=== PATIENT | male | born 1965 | race Caucasian/White ===

== ENCOUNTER 2017-02-16 20:32 | Emergency (ER) | payer MEDICARE, MEDICAID ==
[~2017-02-16 20:32] MED LIST: ADVAIR 250/501 DISK INH; ASPIRIN325 MG PO; BACTRIM DS TABL1 TAB PO; COUMADIN5 MG PO; HYDRALAZINE HCL25 MG PO; LASIX40 MG PO; LISINOPRIL5 MG PO; LOPRESSOR50 MG PO; METOPROLOL TART50 MG PO; NORCO 10/325 TA1 TA1 PO; NORVASC10 MG PO; PROAIR HFA8.5 GM INH; ROBAXIN500 MG PO; ULTRAM50 MG PO; ZESTRIL40 MG PO
[2017-02-16 21:09] LABS: BASOPHILS 0.2 % (0-2); EOSINOPHILS 2.9 % (0-7); HEMATOCRIT 40.4 % (42.0-54.0); HEMOGLOBIN 13.5 g/dL (13.5-17.5); IMMATURE GRANULOCYTES 0.2 % (0-5); LYMPHOCYTES 15.6 % (15-50); MCH 32.1 pg (26.0-34.0); MCHC 33.4 g/dL (31.0-37.0); MONOCYTES 7.2 % (2-11); NEUTROPHILS 73.9 % (40-80); PLATELET COUNT 162 10x3/uL (130-400); RBC 4.21 10x6/uL (4.20-6.10); RDW 13.3 % (11.5-14.5); WBC 5.3 10x3/uL (4.8-10.8)
[2017-02-16 21:34] LABS: ALBUMIN 3.3 g/dL (3.4-5.0); ALKALINE PHOSPHATASE 58 U/L (46-116); ALT (SGPT) 67 U/L (10-68); BILIRUBIN - TOTAL 0.26 mg/dL (0.2-1.3); CALC OSMOLALITY 277 mosm/kg (275-300); CALCIUM 8.8 mg/dL (8.5-10.1); CARBON DIOXIDE 25.8 mmol/L (21.0-32.0); CHLORIDE - SERUM 99 mmol/L (98-107); GLUCOSE 215 mg/dL (74-106); POTASSIUM - SERUM 4.4 mmol/L (3.5-5.1); PROTEIN - SERUM 7.3 g/dL (6.4-8.2); SODIUM 135 mmol/L (136-145); UREA NITROGEN 19 mg/dL (7-18); eGFR NON AFRICAN AMERICAN 84 mL/min (90-120)
[2017-02-16 21:44] LABS: CHOL - HDL RATIO 6.1 ratio (2.3-4.9); CHOLESTEROL, TOTAL 214 mg/dL (0-200); CKMB 2.9 U/L (0.0-3.6); CREATINE KINASE 214 UL (21-232); HDL CHOLESTEROL 35 mg/dL (32-96); LDL CHOLESTEROL 127 mg/dL (0-100); LDL-HDL RATIO 3.6 ratio (1.5-3.5); TRIGLYCERIDE 264 mg/dL (30-200); TROPONIN-I < 0.017 ng/mL (0.000-0.060)
== END 2017-02-17 00:20 | disposition home or self-care (01) ==
LOC: D.ER 20:32
PROVIDERS: Emergency Medicine
DX: R07.89 Other chest pain (principal); F17.200 Nicotine dependence, unspecified, uncomplicated

== ENCOUNTER → 2017-09-18 12:22 | Outpatient (CLI) | payer MEDICARE, MEDICAID ==
[2014-11-25 13:26] VITALS: BMI 59.2
== END | disposition home or self-care (01) ==
LOC: D.US 09-12 10:00
DX: I65.23 Occlusion and stenosis of bilateral carotid arteries (principal); M79.605 Pain in left leg

== ENCOUNTER → 2018-09-30 13:14 | Outpatient (CLI) | payer MEDICARE ==
[2014-11-25 13:26] VITALS: BMI 59.2
== END | disposition home or self-care (01) ==
LOC: D.US 13:14
PROVIDERS: ATTEND Internal Medicine Cardiovascular Disease
DX: I65.23 Occlusion and stenosis of bilateral carotid arteries (principal); I73.9 Peripheral vascular disease, unspecified

== ENCOUNTER → 2019-09-29 12:55 | Outpatient (CLI) | payer MEDICARE ==
[2014-11-25 13:26] VITALS: BMI 59.2
== END | disposition home or self-care (01) ==
LOC: D.US 09-23 14:00
PROVIDERS: ATTEND Internal Medicine Cardiovascular Disease
DX: I65.23 Occlusion and stenosis of bilateral carotid arteries (principal)

== ENCOUNTER 2019-11-10 23:06 | Inpatient (IN) | payer MEDICARE ==
[~2019-11-10] VITALS: Ht 198.1 cm; Wt 222.7 kg
[2019-11-10] MEDS ORDERED: K-TAB10 MEQ PO (23:14)
[2019-11-10] MEDS ORDERED: HYDRALAZINE HCL25 MG PO (23:14)
[2019-11-10] MEDS ORDERED: GABAPENTIN300 MG PO (23:14)
[2019-11-10] MEDS ORDERED: BACLOFEN20 M1 PO (23:16)
--- NOTE | 2019-11-10 23:20 | NUR ---
[facility] #[id number]
[2019-11-10 23:36] LABS: HEMATOCRIT 42.3 % (42.0-54.0); HEMOGLOBIN 13.9 g/dL (13.5-17.5); LYMPHOCYTES 18.6 % (15-50); MCH 30.5 pg (26.0-34.0); MCHC 32.9 g/dL (31.0-37.0); MCV 92.8 fL (80.0-100.0); MEAN PLATELET VOLUME 10.5 fL (7.4-10.4); NEUTROPHILS 73.2 % (40-80); PLATELET COUNT 200 10x3/uL (130-400); RBC 4.56 10x6/uL (4.20-6.10); RDW 13.9 % (11.5-14.5); WBC 7.1 10x3/uL (4.8-10.8)
[2019-11-10 23:47] LABS: CALC OSMOLALITY 274 mosm/kg (275-300); CALCIUM 8.5 mg/dL (8.5-10.1); CARBON DIOXIDE 25.9 mmol/L (21.0-32.0); CHLORIDE - SERUM 100 mmol/L (98-107); CREATININE - SERUM 0.9 mg/dL (0.6-1.3); GLUCOSE 190 mg/dL (74-106); SODIUM 134 mmol/L (136-145); UREA NITROGEN 17 mg/dL (7-18); eGFR NON AFRICAN AMERICAN > 90 mL/min (90-120)
[2019-11-10 23:48] LABS: APTT 28.3 SECONDS (22.8-39.4); INR 0.95 (0.85-1.17); PROTIME 12.7 SECONDS (11.6-15.0)
[2019-11-10] MEDS ORDERED: CATAPRES0.1 MG PO (23:57)
[2019-11-11 00:06] LABS: ALBUMIN 3.5 g/dL (3.4-5.0); ALKALINE PHOSPHATASE 51 U/L (30-120); ALT (SGPT) 37 U/L (10-68); BILIRUBIN - TOTAL 0.31 mg/dL (0.2-1.3); CREATINE KINASE 316 UL (21-232); MAGNESIUM - SERUM 1.5 mg/dL (1.8-2.4); PROTEIN - SERUM 7.2 g/dL (6.4-8.2); TROPONIN-I < 0.017 ng/mL (0.000-0.060)
[2019-11-11 01:22] VITALS: BP 150/82
--- NOTE | 2019-11-11 04:35 | NUR ---
PATIENT TO THE FLOOR ABLE TO TRANSFER TO THE BED WITH NO ASSISTANCE NURSE FROM ER STATES HE WEIGHTED HIM TONIGHT
[2019-11-11 05:22] VITALS: BMI 56.7
[2019-11-11 06:27] VITALS: BP 143/68
--- NOTE | 2019-11-11 07:30 | NUR ---
REPORT RECIEVED. PT SITTING SEMI FOWLERS. RR EVEN AND UNLABORED ON RA. PT HAS A R FA PIV INFUSING NS @ 100. BED LOCKED AND IN LOWEST POSITION, CALL LIGHT WITHIN REACH. WILL CTM
[2019-11-11 10:49] VITALS: BP 154/78
[2019-11-11 12:13] VITALS: Ht 198.1 cm; Wt 222.7 kg
[2019-11-11 12:21] VITALS: BP 160/83
[2019-11-11 16:10] LABS: CKMB 4.2 U/L (0.0-3.6); CREATINE KINASE 285 UL (21-232)
[2019-11-11 16:40] VITALS: BP 128/74
--- NOTE | 2019-11-11 19:37 | NUR ---
PT IS AWAKE AND ALERT DENIES ANY NEEDS AT THIS TIME CONT TO CO TINGLING IN FACE AND NECK NOTED CT WAS NEG BED IS LOW AND LOCKED AND CALL LIGHT IS WITH PT
[2019-11-11 21:29] VITALS: BP 136/67
[2019-11-12] VITALS: BP 150/79
--- NOTE | 2019-11-12 05:45 | NUR ---
I have reviewed this patient and I concur with the Shift Assessment completed by the Licensed Practical Nurse today this shift.
[2019-11-12 05:49] LABS: HEMATOCRIT 42.7 % (42.0-54.0); LYMPHOCYTES 28.7 % (15-50); MCH 30.8 pg (26.0-34.0); MCHC 32.8 g/dL (31.0-37.0); MCV 93.8 fL (80.0-100.0); MEAN PLATELET VOLUME 10.2 fL (7.4-10.4); NEUTROPHILS 63.1 % (40-80); PLATELET COUNT 185 10x3/uL (130-400); RBC 4.55 10x6/uL (4.20-6.10); RDW 13.7 % (11.5-14.5); WBC 5.6 10x3/uL (4.8-10.8)
[2019-11-12 06:19] LABS: CALC OSMOLALITY 284 mosm/kg (275-300); CALCIUM 8.3 mg/dL (8.5-10.1); CARBON DIOXIDE 26.1 mmol/L (21.0-32.0); CHLORIDE - SERUM 102 mmol/L (98-107); CREATININE - SERUM 0.8 mg/dL (0.6-1.3); POTASSIUM - SERUM 4.5 mmol/L (3.5-5.1); SODIUM 143 mmol/L (136-145); UREA NITROGEN 13 mg/dL (7-18); eGFR NON AFRICAN AMERICAN > 90 mL/min (90-120)
[2019-11-12 06:41] LABS: GLUCOSE 103 mg/dL (74-106)
[2019-11-12 10:10] VITALS: BP 160/91
--- NOTE | 2019-11-12 13:43 | MORECARE ---
CASE MANAGEMENT DISCHARGE SUMMARY PATIENT: KIMMIE TAVERAS UNIT: [id number] ADM DATE: 11/11/19 AGE: 54 : 65 SEX: M ROOM/BED: D.2140 AUTHOR: ELI WILLIAM PHYSICIAN: REFERRING PHYSICIAN: ANGELO STOREY MD DATE OF SERVICE: 11/12/19 Discharge Plan Patient Name: KIMMIE TAVERAS [facility] : 1965 Planned Disposition: Anticipated Discharge Date: Discharge Date: 11/12/2019 Expected LOS: Initial Reviewer: [email or web address] Initial Review Date: 11/11/2019 Generated: 11/12/19 2:42 pm Coverage Notice Reviewer: [email or web address] Miguel Angel Ramirez Notice Issued Date-Time: 11/11/2019 8:10 Notice Type: Medicare Outpatient Observation Notice Notice Delivered To: Patient Relationship to Patient: Gastroenterology Manager Name: Delivery Method: HAND - Hand Delivered Jennifer Days: Prior Verbal Notification: Recipient Understood Notice: Yes Recipient Signature: Yes Med Rec Note Co-signed by Attending: Coverage Notice Comment: CHACON SERVED, EXPLAINED, AND SIGNED BY PATIENT. THE ORIGINAL WAS PROVIDED TO THE PATIENT AND COPY PLACED ON CHART. Patient Name: KIMMIE TAVERAS Page [id number] at 1343 All edits/amendments must be made on the electronic document DICTATION DATE: 11/12/19 1342 ORGAN GRINDER: MANOHAR 11/12/19 1342 RPT#: [id number] DC DATE:11/12/19 STATUS: DIS IN [facility] [address] [place] [address] END OF REPORT
--- NOTE | 2019-11-12 13:51 | MORECARE ---
CASE MANAGEMENT DISCHARGE SUMMARY PATIENT: KIMMIE TAVERAS UNIT: [id number] ADM DATE: 11/11/19 AGE: 54 : 65 SEX: M ROOM/BED: D.2140 AUTHOR: ELI WILLIAM PHYSICIAN: REFERRING PHYSICIAN: ANGELO STOREY MD DATE OF SERVICE: 11/12/19 Discharge Plan Patient Name: KIMMIE TAVERAS Facility: [facility]:[place] : 1965 Planned Disposition: Anticipated Discharge Date: Discharge Date: 11/12/2019 Expected LOS: Initial Reviewer: [email or web address] Initial Review Date: 11/11/2019 Generated: 11/12/19 2:50 pm Comments DCP- Discharge Planning Updated by [id number]: Allie Ramirez on 11/12/19 12:[address] Patient Name: KIMMIE TAVERAS Admission Status: ER Accout number: [id number] Admission Date: 11-11-2019 : 1965 Admission Diagnosis: Attending: ANGELO STOREY Current LOS: 1 Anticipated DC Date: Planned Disposition: Primary Insurance: MEDICARE A & B Discharge Planning Comments: CM met with patient to complete initial dc planning assessment. CM educated patient on the CM role and verbal consent given by patient to complete assessment. CM verified patient's address, phone number, and emergency contact phone numbers. Patient lives at home with his who is currently at bedside. At discharge patient plans to return home and feels this is a safe discharge. CM discussed availability of home health, rehab services, and medical equipment. Pt states he has difficulty ambulating, and is attempting to gain strength. Pt is in agreement with [facility] ROBERTO choice signed. CM spoke with Miguelina at [phone] and faxed referral. Patient denies other known discharge needs at this time. Transportation provider at discharge will be his . CM will continue to follow and will assist as needed with dc plans/needs. Medical Administrative Assistant: Allie Ramirez DCPIA - Discharge Planning Initial Assessment Updated by [email or web address]: Allie Ramirez on 11/12/19 1:44 pm * Is the patient Alert and Oriented? Yes * How many steps to enter\exit or inside your home? 4/0 * PCP [facility] * Pharmacy [facility] * Preadmission Environment Home with Family * ADLs Independent * Equipment CPAP * Community resources currently utilized None * Additional services required to return to the preadmission environment? Yes * Can the patient safely return to the preadmission environment? Yes * Has this patient been hospitalized within the prior 30 days at any hospital? No Coverage Notice Reviewer: [id number] Miguel Angel Ramirez Notice Issued Date-Time: 11/11/2019 8:10 Notice Type: Medicare Outpatient Observation Notice Notice Delivered To: Patient Relationship to Patient: Software Testing Specialist Name: Delivery Method: HAND - Hand Delivered Jennifer Days: Prior Verbal Notification: Recipient Understood Notice: Yes Recipient Signature: Yes Med Rec Note Co-signed by Attending: Coverage Notice Comment: CHACON SERVED, EXPLAINED, AND SIGNED BY PATIENT. THE ORIGINAL WAS PROVIDED TO THE PATIENT AND COPY PLACED ON CHART. Reviewer: [id number] Miguel Angel Ramirez Notice Issued Date-Time: 11/12/2019 13:00 Notice Type: Patient Choice Letter Notice Delivered To: Patient Relationship to Patient: Software Testing Specialist Name: Delivery Method: HAND - Hand Delivered Jennifer Days: Prior Verbal Notification: Recipient Understood Notice: Yes Recipient Signature: Yes Med Rec Note Co-signed by Attending: Coverage Notice Comment: essence fink Last DP export: 11/12/19 12:43 p Patient Name: KIMMIE TAVERAS Page 13210 at 1351 All edits/amendments must be made on the electronic document DICTATION DATE: 11/12/19 1350 PUMPER BREWERY: MANOHAR 11/12/19 1350 RPT#: [id number] DC DATE:11/12/19 STATUS: DIS IN [facility] [address] [place] [address] END OF REPORT
--- NOTE | 2019-11-13 01:43 | MORECARE ---
CASE MANAGEMENT DISCHARGE SUMMARY PATIENT: KIMMIE TAVERAS UNIT: [id number] ADM DATE: 11/11/19 AGE: 54 : 65 SEX: M ROOM/BED: D.2140 AUTHOR: ELI WILLIAM PHYSICIAN: REFERRING PHYSICIAN: ANGELO STOREY MD DATE OF SERVICE: 11/13/19 Discharge Plan Patient Name: KIMMIE TAVERAS Facility: [facility]:[place] : 1965 Planned Disposition: Anticipated Discharge Date: Discharge Date: 11/12/2019 Expected LOS: Initial Reviewer: [email or web address] Initial Review Date: 11/11/2019 Generated: 11/13/19 2:42 am Comments DCP- Discharge Planning Updated by [email or web address]: Allie Ramirez on 11/12/19 12:[address] Patient Name: KIMMIE TAVERAS Admission Status: ER Accout number: [id number] Admission Date: 11-11-2019 : 1965 Admission Diagnosis: Attending: ANGELO STOREY Current LOS: 1 Anticipated DC Date: Planned Disposition: Primary Insurance: MEDICARE A & B Discharge Planning Comments: CM met with patient to complete initial dc planning assessment. CM educated patient on the CM role and verbal consent given by patient to complete assessment. CM verified patient's address, phone number, and emergency contact phone numbers. Patient lives at home with his who is currently at bedside. At discharge patient plans to return home and feels this is a safe discharge. CM discussed availability of home health, rehab services, and medical equipment. Pt states he has difficulty ambulating, and is attempting to gain strength. Pt is in agreement with [facility] DANAE choice signed. CM spoke with Miguelina at [phone] and faxed referral. Patient denies other known discharge needs at this time. Transportation provider at discharge will be his . CM will continue to follow and will assist as needed with dc plans/needs. Dairy Husbandman: Allie Ramirez DCPIA - Discharge Planning Initial Assessment Updated by [email or web address]: Allie Ramirez on 11/12/19 1:44 pm * Is the patient Alert and Oriented? Yes * How many steps to enter\exit or inside your home? 4/0 * PCP [facility] * Pharmacy [facility] * Preadmission Environment Home with Family * ADLs Independent * Equipment CPAP * Community resources currently utilized None * Additional services required to return to the preadmission environment? Yes * Can the patient safely return to the preadmission environment? Yes * Has this patient been hospitalized within the prior 30 days at any hospital? No Coverage Notice Reviewer: [id number] Miguel Angel Ramirez Notice Issued Date-Time: 11/11/2019 8:10 Notice Type: Medicare Outpatient Observation Notice Notice Delivered To: Patient Relationship to Patient: Microstrategy Architect Developer Name: Delivery Method: HAND - Hand Delivered Jennifer Days: Prior Verbal Notification: Recipient Understood Notice: Yes Recipient Signature: Yes Med Rec Note Co-signed by Attending: Coverage Notice Comment: CHACON SERVED, EXPLAINED, AND SIGNED BY PATIENT. THE ORIGINAL WAS PROVIDED TO THE PATIENT AND COPY PLACED ON CHART. Reviewer: [id number] Miguel Angel Ramirez Notice Issued Date-Time: 11/12/2019 13:00 Notice Type: Patient Choice Letter Notice Delivered To: Patient Relationship to Patient: Microstrategy Architect Developer Name: Delivery Method: HAND - Hand Delivered Jennifer Days: Prior Verbal Notification: Recipient Understood Notice: Yes Recipient Signature: Yes Med Rec Note Co-signed by Attending: Coverage Notice Comment: essence danae Campos DP export: 11/12/19 12:51 p Patient Name: KIMMIE TAVERAS Page [id number] at 0143 All edits/amendments must be made on the electronic document DICTATION DATE: 11/13/19141 POKER DEALER: MANOHAR 11/13/19 014 RPT#: [id number] DC DATE:11/12/19 STATUS: DIS IN [facility] [address] [place] [address] END OF REPORT
== END 2019-11-12 13:36 | disposition home health service (06) | DRG 313 ==
LOC: D.ER 23:06 → D.M2 11-11 02:13 → OBSVTIME 11-11 02:13 → D.M2 11-11 02:13
PROVIDERS: Family Medicine; Internal Medicine Interventional Cardiology; ADMIT Family Medicine; ATTEND Family Medicine
DX: R07.9 Chest pain, unspecified (principal); E87.1 Hypo-osmolality and hyponatremia; Z68.43 Body mass index [BMI] 50.0-59.9, adult; I10 Essential (primary) hypertension; J45.909 Unspecified asthma, uncomplicated; F12.90 Cannabis use, unspecified, uncomplicated; E66.01 Morbid (severe) obesity due to excess calories; E86.0 Dehydration; M50.30 Other cervical disc degeneration, unspecified cervical region; Z87.891 Personal history of nicotine dependence